=== PATIENT | male | born 1965 | race Asian ===

== ENCOUNTER 2016-12-05 17:46 | Emergency (ER) | payer MEDICAID ==
[2016-12-05] MEDS ORDERED: SULFAMETH/TRIMETH DS 800/160 MG TABLET PO STA (18:27)
[2016-12-05] MEDS ORDERED: LIDOCAINE-EPINEPH-TETRACAINE 3 ML SYRINGE TOP STA (18:27)
[2016-12-05] MEDS ORDERED: HYDROcod/ACETAM 5/325 MG TABLET PO STA (18:27)
[2016-12-05] MEDS ORDERED: CEPHALEXIN 250 MG CAPSULE PO STA (18:27)
--- NOTE | 2016-12-05 18:29 | ED Physician Documentation ---
History of Present Illness - Stated complaint Stated Complaint: R KNEE WOUND/MRSA CHECK - Chief complaint Chief Complaint: Ext Problem - History obtained from History obtained from: Patient, Family - History of Present Illness Timing: How many weeks ago (1) Pain level max: 7 Pain level now: 7 Improved by: Rest Worsened by: Palpation - Additonal information Additional information: Patient presents to the emergency department with redness and swelling to the lateral aspect of the right knee. 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 He is able to ambulate on the leg. He has had this in the past and improved with antibiotics. Does not have any artificial joints. Is able to flex and extend the knee. Review of Systems Constitutional: denies: Fever, Chills Nose: denies: Rhinorrhea / runny nose, Congestion Respiratory: denies: Cough GI: denies: Vomiting Skin: denies: Rash Musculoskeletal: denies: Neck pain, Back pain Neurologic: denies: Headache PD PAST MEDICAL HISTORY - Past Medical History Past Medical History: No - Past Surgical History Past Surgical History: No - Present Medications Home Medications: Ambulatory Orders Medication Instructions Recorded Confirmed Cephalexin [Keflex] 500 mg PO Q6H #28 capsule 12/05/16 Hydrocodone/Acetaminophen 1 - 2 each PO Q6H PRN #14 tablet 12/05/16 [Hydrocodon-Acetaminophen 5-325] Sulfamethoxazole/Trimethoprim 1 each PO BID 7 Days 12/05/16 [Bactrim Ds Tablet] - Allergies Allergies/Adverse Reactions: Allergies Allergy/AdvReac Type Severity Reaction Status Date / Time No Known Drug Allergies Allergy Verified 12/05/16 18:01 - Social History Does the pt smoke?: Yes Smoking Status: Current every day smoker PD ED PE NORMAL - Vitals Vital signs reviewed: Yes - General General: Alert and oriented X 3, No acute distress - Derm Derm: Warm and dry - Extremities Extremities: Other (Right knee - Cellulitis present over the lateral anterior aspect of the knee. There is no joint effusion. There is a very small abscess on the anterior portion of the cellulitis. There is full range of motion of the knee without pain. Neurovascularly intact. The cellulitis is approximately 3 x 6 cm) - Neuro Neuro: Alert and oriented X 3 - Psych Psych: Normal mood, Normal affect Results - Vitals Vitals: Oxygen O2 Source Room air - Labs Labs: Microbiology 12/05/16 19:20 Wound Culture - Preliminary Abscess Procedures - Abscess I&D (location) R knee Preparation: Confirmed with ultrasound, LET Incision: Needle aspiration, Purulent drainage (0.1ml), Culture obtained Other: Pt tolerated well, Dressing applied, Antibiotic prescribed PD MEDICAL DECISION MAKING - ED course Complexity details: re-evaluated patient, considered differential, d/w patient, d/w family ED course: Patient with a left knee cellulitis. This is not a septic joint. The small abscess was unroofed and drained. Will place on antibiotics and pain medications for home. Patient tolerated well. Patient is afebrile. No sepsis. Patient and family counseled regarding signs and symptoms for which I believe and urgent re-evaluation would be necessary. Patient with good understanding of and agreement to plan and is comfortable going home at this time This document was made in part using voice recognition software. While efforts are made to proofread this document, sound alike and grammatical errors may occur. Departure - Departure Disposition: 01 Home, Self Care Clinical Impression: Cellulitis Qualifiers: Site of cellulitis: extremity Site of cellulitis of extremity: lower extremity Laterality: left Qualified Code(s): L03.116 - Cellulitis of left lower limb Condition: Good Instructions: ED Infec Skin Cellulitis Follow-Up: Ludmila Kinney ARNP [Primary Care Provider] - Within 3 Days (for wound check) Prescriptions: Sulfamethoxazole/Trimethoprim [Bactrim Ds Tablet] 1 each PO BID 7 Days Hydrocodone/Acetaminophen [Hydrocodon-Acetaminophen 5-325] 1 - 2 each PO Q6H PRN #14 tablet PRN Reason: pain Cephalexin [Keflex] 500 mg PO Q6H #28 capsule Comments: Return if you worsen. Take all antibiotics until gone. Do not drink alcohol or drive while on narcotic pain medicine. Note that many narcotic pain relievers also contain tylenol/acetaminophen. Please ensure that your total dose of acetaminophen from all sources does not exceed 3 grams (3000mg) per day. You may constipated on this medication, take a stool softener such as "Colace" twice a day while you are on it. Also recommend a onvl-but-luewubr laxative such as senna or MiraLAX any day that you do not have a bowel movement. If you received narcotic pain medication in the emergency department, do not drive or operate machinery for the next 24 hours. Your blood pressure was elevated today on check in to the emergency department. This does not mean that you have hypertension, it is a common phenomenon to check into the emergency department and have elevated blood pressure. I recommend that you see your primary care physician within the week to have it rechecked when you're feeling better. Discharge Date/Time: 12/05/16 19:47
[2016-12-05] MEDS ORDERED: LIDOCAINE-EPINEPH-TETRACAINE 3 ML SYRINGE TOP ONE (18:31)
[2016-12-05] MEDS ORDERED: CEPHALEXIN 250 MG CAPSULE PO ONE (18:31)
[2016-12-05] MEDS ORDERED: HYDROcod/ACETAM 5/325 MG TABLET ONE (18:31)
[2016-12-05] MEDS ORDERED: SULFAMETH/TRIMETH DS 800/160 MG TABLET PO ONE (18:31)
[2016-12-05] MEDS ORDERED: oxyCODONE 5 MG TABLET PO STA (19:35)
[2016-12-05] MEDS ORDERED: oxyCODONE 5 MG TABLET ONE (19:37)
[2016-12-05 19:48] VITALS: BP 132/64
== END 2016-12-05 19:47 | disposition home or self-care (01) ==
LOC: ED 17:46
DX: L02.415 Cutaneous abscess of right lower limb (principal); L03.115 Cellulitis of right lower limb; R03.0 Elevated blood-pressure reading, without diagnosis of hypertension; F17.200 Nicotine dependence, unspecified, uncomplicated
CPT/HCPCS: 10160; 87070; 87077; 87181; 87205; 99283; A9270

== ENCOUNTER 2020-04-28 13:42 | Emergency (ER) | payer MEDICAID ==
[2020-04-28 13:53] VITALS: BP 127/86
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
[2020-04-28] MEDS ORDERED: DEXAMETHASONE 10 MG/ML VIAL PO STA (14:24)
[2020-04-28] MEDS ORDERED: CHERRY SYRUP 10 ML UDC PO ONE (14:24)
[2020-04-28] MEDS ORDERED: CETIRIZINE 10 MG TABLET PO STA (14:24)
[2020-04-28] MEDS ORDERED: diphenhydrAMINE 25 MG CAPSULE PO STA (14:24)
== END 2020-04-28 14:50 | disposition home or self-care (01) ==
LOC: ED 13:42
DX: T63.441A Toxic effect of venom of bees, accidental (unintentional), initial encounter (principal); R22.0 Localized swelling, mass and lump, head; X58.XXXA Exposure to other specified factors, initial encounter; F17.200 Nicotine dependence, unspecified, uncomplicated
CPT/HCPCS: 99282; 99284; A9270

== ENCOUNTER 2020-07-13 11:43 | Emergency (ER) | payer MEDICAID ==
[2020-07-13] MEDS ORDERED: TETANUS/DIPHTHERIA/PERTUSSIS 0.5 ML SYRINGE IM ONE (12:04)
--- NOTE | 2020-07-13 12:13 | ED Physician Documentation ---
PD HPI LOWER EXT INJURY - Stated complaint Stated Complaint: L FOOT INJ - Chief complaint Chief Complaint: Trauma Ext - History obtained from History obtained from: Patient (55-year-old gentleman with unknown tetanus status stepped on a nail through shoes over 2 weeks ago. He has had pain and swelling since and now has redness and a pustule.) Review of Systems Ten Systems: 10 systems reviewed and negative Constitutional: denies: Fever, Chills Throat: reports: Reviewed and negative Cardiac: reports: Reviewed and negative Respiratory: reports: Reviewed and negative PD PAST MEDICAL HISTORY - Past Medical History Cardiovascular: None Respiratory: None Neuro: None Endocrine/Autoimmune: None GI: None : None HEENT: Chronic hearing loss Psych: None Musculoskeletal: None Derm: None - Past Surgical History Past Surgical History: Yes General: Hiatal hernia repair Ortho: Other - Present Medications Home Medications: Ambulatory Orders Medication Instructions Recorded Confirmed Ciprofloxacin HCl [Cipro] 500 mg PO BID #20 tablet 07/13/20 - Allergies Allergies/Adverse Reactions: Allergies Allergy/AdvReac Type Severity Reaction Status Date / Time No Known Drug Allergies Allergy Verified 07/13/20 11:50 - Social History Does the pt smoke?: Yes Smoking Status: Current every day smoker Does the pt drink ETOH?: No Does the pt have substance abuse?: Yes Substance Use and Type: Marijuana - Immunizations Immunizations are current?: No Immunizations: TDAP >10years/unknown - POLST Patient has POLST: No PD ED PE NORMAL - Vitals Vital signs reviewed: Yes - General General: Alert and oriented X 3, No acute distress - HEENT HEENT: PERRL, EOMI - Neck Neck: No JVD, No bruit - Cardiac Cardiac: RRR, No murmur - Respiratory Respiratory: No respiratory distress, Clear bilaterally - Abdomen Abdomen: Normal bowel sounds, Soft, Non tender - Back Back: No CVA TTP, No spinal TTP - Derm Derm: Normal color, Warm and dry - Extremities Extremities: Other (The site of entry of the nail is well-healed, its on the bottom of the heel. There is cellulitis and a pustule more on the lateral side of the calcaneus.) - Neuro Neuro: Alert and oriented X 3, Normal speech - Psych Psych: Normal mood, Normal affect PD ED PE EXPANDED - Extremities Feet visual: 1 - laceration (healed puncture) 2 - abscess (cellulitis with small central pustule) Results - Vitals Vitals: Vital Signs - 24 hr 07/13/20 07/13/20 11:51 12:07 Temperature 36.2 C L 36.8 C Heart Rate 81 79 Respiratory 18 16 Rate Blood Pressure 127/81 H 125/79 O2 Saturation 98 100 Oxygen O2 Source Room air - Labs Labs: Laboratory Tests 07/13/20 07/13/20 07/13/20 12:10 12:10 12:10 WBC 7.3 RBC 4.21 L Hgb 13.3 L Hct 38.7 L MCV 91.9 MCH 31.6 H MCHC 34.4 RDW 13.0 Plt Count 418 MPV 9.7 Neut # (Auto) 4.5 Lymph # (Auto) 1.8 [place] # (Auto) 0.7 Eos # (Auto) 0.3 Baso # (Auto) 0.1 Absolute Nucleated RBC 0.00 Nucleated RBC % 0.0 ESR 28 H Sodium 138 Potassium 4.1 Chloride 103 Carbon Dioxide 25 Anion Gap 10.0 BUN 27 H Creatinine 0.9 Estimated GFR (MDRD) 88 L Glucose 118 H Calcium 9.3 C-Reactive Protein < 1.0 - Rads (name of study) Left calcaneus x-ray Radiology: EMP read contemporaneously (Unremarkable, no sign of osteomyelitis.) Procedures - Abscess I&D (location) L foot lateral Preparation: Betadine, Lidocaine 1% Incision: Incised with scalpel, Purulent drainage (minimal), Culture obtained. No: Packed (too small) Other: Pt tolerated well, Dressing applied, Antibiotic prescribed PD MEDICAL DECISION MAKING - ED course ED course: 55-year-old gentleman presents subsequent to a puncture wound to the left calc aneus with an abscess and cellulitis on the side of the foot. Very modestly elevated ESR but normal white count and low normal CRP. Case was discussed by phone with on-call orthopedics, Dr. Lucas who feels okay to I&D the abscess and placed on antibiotics pending cultures. Departure - Departure Disposition: 01 Home, Self Care Clinical Impression: Foot abscess, left Condition: Good Record reviewed to determine appropriate education?: Yes Instructions: ED Abscess IandD Prescriptions: Ciprofloxacin HCl [Cipro] 500 mg PO BID #20 tablet Comments: We are performing a wound culture, the results should be done in 48-72 hours. If antibiotic change is necessary we will call you. Return if worse in the meantime, especially if you develop increased pain, fevers, cannot keep down the medication. Otherwise follow-up with your physician in approximately 2-3 days.
[2020-07-13 12:24] LABS: BASOPHILS # (AUTO) 0.1 10^3/uL (0.0-0.1); BASOPHILS % (AUTO) 1.4 %; EOSINOPHILS # (AUTO) 0.3 10^3/uL (0.0-0.7); EOSINOPHILS % (AUTO) 3.4 %; HGB - HEMOGLOBIN 13.3 g/dL (14.0-18.0); LYMPHOCYTES # (AUTO) 1.8 10^3/uL (1.5-3.5); LYMPHOCYTES % (AUTO) 24.9 %; MEAN CORPUSCULAR HEMOGLOBIN 31.6 pg (27.0-31.0); MEAN CORPUSCULAR HGB CONC 34.4 g/dL (32.0-36.0); MEAN CORPUSCULAR VOLUME 91.9 fL (80.0-94.0); MEAN PLATELET VOLUME 9.7 fL (7.4-11.4); MONOCYTES # (AUTO) 0.7 10^3/uL (0.0-1.0); MONOCYTES % (AUTO) 8.9 %; NEUTROPHILS # (AUTO) 4.5 10^3/uL (1.5-6.6); NEUTROPHILS % (AUTO) 61.1 %; PLT - PLATELET COUNT 418 10^3/uL (130-450); RED BLOOD COUNT 4.21 10^6/uL (4.70-6.10); WHITE BLOOD COUNT 7.3 x10^3/uL (4.8-10.8)
[2020-07-13 12:40] LABS: BUN - BLOOD UREA NITROGEN 27 mg/dL (6-20); CALCIUM 9.3 mg/dL (8.5-10.3); CARBON DIOXIDE - CO2 25 mmol/L (21-32); CHLORIDE 103 mmol/L (101-111); CREATININE 0.9 mg/dL (0.6-1.2); GLUCOSE 118 mg/dL (70-100); SODIUM 138 mmol/L (135-145)
--- NOTE | 2020-07-13 12:41 | XRAY Report ---
PROCEDURE: Calcaneus LT INDICATIONS: foot infection TECHNIQUE: Two views of the calcaneus were acquired. COMPARISON: None FINDINGS: Bones: No fractures or dislocations. No suspicious bony lesions. Soft tissues: No suspicious calcifications. Achilles tendon appears normal. IMPRESSION: No calcaneal fracture or dislocation. No radiographic evidence of osteomyelitis. Reviewed by: Edward Flores MD on 07/13/2020 11:39 AM TONNY Approved by: Edward Flores MD on 07/13/2020 11:39 AM TONNY Station ID: [id number]
[2020-07-13 12:50] LABS: CRP - C-REACTIVE PROTEIN < 1.0 mg/dL (0-1.0)
[2020-07-13] MEDS ORDERED: BUFFERED LIDOCAINE 10 ML SYRINGE SUBQ STA (13:03)
[2020-07-13 13:41] VITALS: BP 177/82
== END 2020-07-13 13:47 | disposition home or self-care (01) ==
LOC: ED 11:43
DX: L02.612 Cutaneous abscess of left foot (principal); L03.116 Cellulitis of left lower limb; R70.0 Elevated erythrocyte sedimentation rate; Z23 Encounter for immunization; F17.200 Nicotine dependence, unspecified, uncomplicated
CPT/HCPCS: 10060; 36415; 80048; 85025; 85651; 86140; 87070; 87077; 87181; 87205; 90471

== ENCOUNTER 2020-09-11 15:36 | Emergency (ER) | payer MEDICAID ==
[2020-09-11 15:40] VITALS: BP 124/80
--- NOTE | 2020-09-11 15:44 | ED Physician Documentation ---
PD HPI SKIN - Stated complaint Stated Complaint: RT LEG WOUND - Chief complaint Chief Complaint: Wound - History obtained from History obtained from: Patient - History of Present Illness Timing - onset: How many days ago (4) Timing - duration: Days (4) Timing - details: Gradual onset, Still present Location: RLE (anteromedial right thigh, started with small pimple like lesion, thought he had gotten thorn poke working in yard. but then noted 2 small holes appearance so thought spider bite instead. The area has had increased redness and swelling. Has started draining the past day.) Quality / character: Painful, Discolored (red at site and surrounding as well.), Raised, Swelling, Draining (the past day) Associated symptoms: No: Fever, N/V/D Contributing factors: Other (onset after doing yard work and cleaning out shed. Was working with [employer] so some thorn pokes.). No: Recent illness Recently seen: Not recently seen Review of Systems Constitutional: denies: Fever, Chills Nose: denies: Rhinorrhea / runny nose, Congestion Throat: denies: Sore throat Respiratory: denies: Cough GI: denies: Nausea, Vomiting, Diarrhea PD PAST MEDICAL HISTORY - Past Medical History Cardiovascular: None Respiratory: None Neuro: None Endocrine/Autoimmune: None GI: None : None HEENT: Chronic hearing loss Psych: None Musculoskeletal: None Derm: None - Past Surgical History Past Surgical History: Yes General: Hiatal hernia repair Ortho: Other - Present Medications Home Medications: Ambulatory Orders Medication Instructions Recorded Confirmed Chlorhexidine Gluconate [Hibiclens] 15 ml TP DAILY #236 ml 09/11/20 HYDROcod/ACETAM 5/325 [[place] 5/325] 1 ea PO Q6H PRN #15 tablet 09/11/20 Mupirocin Calcium [Mupirocin] 1 applic TP TID #15 cream..g. 09/11/20 Sulfamethox/Trimeth 800/160 1 each PO BID #14 tablet 09/11/20 [Bactrim Ds 800/160] - Allergies Allergies/Adverse Reactions: Allergies Allergy/AdvReac Type Severity Reaction Status Date / Time No Known Drug Allergies Allergy Verified 09/11/20 15:40 - Living Situation Living Situation: reports: Alone Living Arrangement: reports: At home (in a small trailer without running water.) - Social History Does the pt smoke?: Yes Smoking Status: Current every day smoker Does the pt drink ETOH?: No Does the pt have substance abuse?: Yes - Immunizations Immunizations are current?: No Immunizations: TDAP >10years/unknown - POLST Patient has POLST: No PD ED PE NORMAL - Vitals Vital signs reviewed: Yes - General General: Alert and oriented X 3, No acute distress, Well developed/nourished - Derm Derm: Normal color, Warm and dry - Extremities Extremities: Other (right lower anteromedial thigh with very tender, weeping, nonfluctuant area of skin breakdown, and surround skin redness of intact skin. No fluctuance. Mild drainage after palpating the area. ) Results - Vitals Vitals: Vital Signs - 24 hr 09/11/20 15:38 Temperature 35.7 C L Heart Rate 83 Respiratory 18 Rate Blood Pressure 124/80 O2 Saturation 99 Oxygen O2 Source Room air - Labs Labs: Microbiology 09/11/20 16:04 Wound Culture - Preliminary Thigh - Right PD MEDICAL DECISION MAKING - ED course Complexity details: considered differential (appears abscess that has started draining but still with infection and surrounding cellulitis.), d/w patient Departure - Departure Disposition: 01 Home, Self Care Clinical Impression: Abscess of right thigh Condition: Stable Record reviewed to determine appropriate education?: Yes Instructions: ED Staph Infec Abx Tx Only Follow-Up: [facility] [Provider Group] Prescriptions: Sulfamethox/Trimeth 800/160 [Bactrim Ds 800/160] 1 each PO BID #14 tablet Chlorhexidine Gluconate [Hibiclens] 15 ml TP DAILY #236 ml Mupirocin Calcium [Mupirocin] 1 applic TP TID #15 cream..g. HYDROcod/ACETAM 5/325 [[place] 5/325] 1 ea PO Q6H PRN #15 tablet PRN Reason: Pain Comments: Clean the area with soap and water as you have been doing and then apply mupirocin Topical antibiotic. Take Bactrim oral antibiotic twice daily for a week for the infection. Use ibuprofen or naproxen if needed for pains. To that add hydrocodone if needed for worse pain. Use chlorhexidine body wash with your showers head to toe to try to reduce spread of infection to other areas. Recheck if not improved well over the next several days and resolved within the 5 or 6 days. Discharge Date/Time: 09/11/20 16:50
[2020-09-11] MEDS ORDERED: MUPIROCIN 2% OINT 1 GM TOP STA (16:13)
[2020-09-11] MEDS ORDERED: SULFAMETH/TRIMETH DS 800/160 MG TABLET PO STA (16:13)
[2020-09-11] MEDS ORDERED: HYDROcod/ACETAM 5/325 MG TABLET PO STA (16:13)
[2020-09-11] MEDS ORDERED: IBUPROFEN 600 MG TABLET PO STA (16:13)
== END 2020-09-11 16:50 | disposition home or self-care (01) ==
LOC: ED 15:36
DX: L02.415 Cutaneous abscess of right lower limb (principal); F17.200 Nicotine dependence, unspecified, uncomplicated
CPT/HCPCS: 87070; 87181; 87205; 99283; 99284; A9270

== ENCOUNTER 2021-01-24 19:46 | Emergency (ER) | payer MEDICAID ==
[2021-01-24] MEDS ORDERED: IBUPROFEN 800 MG TABLET PO STA (20:32)
[2021-01-24] MEDS ORDERED: SULFAMETH/TRIMETH DS 800/160 MG TABLET PO STA (20:34)
--- NOTE | 2021-01-24 20:34 | ED Physician Documentation ---
PD HPI SKIN - Stated complaint Stated Complaint: SINUS PX - Chief complaint Chief Complaint: Wound - History obtained from History obtained from: Patient - Additional information Additional information: 55-year-old gentleman with history of MRSA in August presents with what he thought was an ingrown hair on the right nares starting about 4 days ago which has progressed since then. Pain is moderate. No fevers. No other current skin issues. Review of Systems Constitutional: reports: Reviewed and negative Eyes: reports: Reviewed and negative Nose: reports: Reviewed and negative Throat: reports: Reviewed and negative Cardiac: reports: Reviewed and negative PD PAST MEDICAL HISTORY - Past Medical History Cardiovascular: None Respiratory: None Neuro: None Endocrine/Autoimmune: None GI: None : None HEENT: Chronic hearing loss Psych: None Musculoskeletal: None Derm: None - Past Surgical History Past Surgical History: Yes General: Hiatal hernia repair Ortho: Other - Present Medications Home Medications: Ambulatory Orders Medication Instructions Recorded Confirmed Sulfamethox/Trimeth 800/160 1 each PO BID #14 tablet 01/24/21 [Bactrim Ds 800/160] - Allergies Allergies/Adverse Reactions: Allergies Allergy/AdvReac Type Severity Reaction Status Date / Time No Known Drug Allergies Allergy Verified 01/24/21 20:22 - Social History Does the pt smoke?: Yes Smoking Status: Current every day smoker Does the pt drink ETOH?: No Does the pt have substance abuse?: Yes - Immunizations Immunizations are current?: No Immunizations: TDAP >10years/unknown - POLST Patient has POLST: No PD ED PE NORMAL - Vitals Vital signs reviewed: Yes - General General: Alert and oriented X 3, No acute distress - HEENT HEENT: Other (He has an expressible nasal abscess right between the nares, a little more on the right than the left. It is actively draining on the right side and a culture is taken.) - Neck Neck: Supple, no meningeal sign, No bony TTP - Neuro Neuro: Alert and oriented X 3, Normal speech - Psych Psych: Normal mood, Normal affect Results - Vitals Vitals: Vital Signs - 24 hr 01/24/21 01/24/21 20:15 20:53 Temperature 36.0 C L 36.5 C Heart Rate 70 75 Respiratory 16 16 Rate Blood Pressure 127/84 H 128/74 O2 Saturation 98 98 Oxygen O2 Source Room air PD MEDICAL DECISION MAKING - ED course ED course: 55-year-old gentleman has a nasal abscess, culture is pending and he was started on Bactrim pending cultures given history of MRSA sensitive to Bactrim. Departure - Departure Disposition: 01 Home, Self Care Clinical Impression: Abscess Condition: Good Record reviewed to determine appropriate education?: Yes Instructions: ED Abscess IandD Prescriptions: Sulfamethox/Trimeth 800/160 [Bactrim Ds 800/160] 1 each PO BID #14 tablet Comments: As discussed, I do not think at this point your nasal abscess needs to be incised, that said, a lot of similar infections progressed to needing an incision and drainage. If it grows despite the antibiotics or you fail to improve over the next couple of days please return, preferably not having ate or drank in the several hours before you return and with a auto parts delivery driver so that we could potentially sedate you if needed for incision and drainage. We are performing a wound culture, the results should be done in 48-72 hours. If antibiotic change is necessary we will call you. Return if worse in the meantime, especially if you develop increased pain, fevers, cannot keep down the medication. Otherwise follow-up with your physician in approximately 2-3 days. Discharge Date/Time: 01/24/21 20:54
[2021-01-24 20:55] VITALS: BP 128/74
== END 2021-01-24 20:54 | disposition home or self-care (01) ==
LOC: ED 19:46
DX: J34.0 Abscess, furuncle and carbuncle of nose (principal); F17.200 Nicotine dependence, unspecified, uncomplicated
CPT/HCPCS: 87070; 87181; 87205; 99283; 99284; A9270

== ENCOUNTER 2021-03-12 13:18 | Emergency (ER) | payer OTHER, MEDICAID ==
[2021-03-12 13:38] VITALS: BP 135/84
--- NOTE | 2021-03-12 14:17 | XRAY Report ---
PROCEDURE: Elbow 3 View LT INDICATIONS: struck elbow TECHNIQUE: 3 views of the elbow were acquired. COMPARISON: None. FINDINGS: Bones: No fractures or dislocations. No suspicious bony lesions. Soft tissues: No elbow joint effusion. No suspicious soft tissue calcifications. IMPRESSION: 1. No fracture or dislocation. Reviewed by: Justin Burns MD on 03/12/2021 2:16 PM PDT Approved by: Justin Burns MD on 03/12/2021 2:16 PM PDT Station ID: [id number]
--- NOTE | 2021-03-12 14:22 | ED Physician Documentation ---
History of Present Illness - Stated complaint Stated Complaint: LT ARM INJ - Chief complaint Chief Complaint: Trauma Ext - History obtained from History obtained from: Patient - History of Present Illness Timing: How many weeks ago (2) Pain level max: 5 Pain level now: 4 - Additonal information Additional information: Patient is a 55-year-old male who struck his left forearm on a piece of concrete about 2 weeks ago while at work. He states worse with movement, better with rest. Difficulty holding heavy objects in the left hand secondary to pain at the site. No numbness or tingling. Patient is right-handed. Taking Tylenol for pain. Review of Systems Constitutional: denies: Fever, Chills GI: denies: Vomiting, Diarrhea Skin: denies: Rash Musculoskeletal: denies: Neck pain, Back pain Neurologic: denies: Headache PD PAST MEDICAL HISTORY - Past Medical History Past Medical History: No Cardiovascular: None Respiratory: None Neuro: None Endocrine/Autoimmune: None GI: None : None HEENT: Chronic hearing loss Psych: None Musculoskeletal: None Derm: None - Past Surgical History Past Surgical History: Yes General: Hiatal hernia repair Ortho: Other - Present Medications Home Medications: Ambulatory Orders Medication Instructions Recorded Confirmed No Known Home Medications 03/12/21 03/12/21 - Allergies Allergies/Adverse Reactions: Allergies Allergy/AdvReac Type Severity Reaction Status Date / Time No Known Drug Allergies Allergy Verified 03/12/21 13:38 - Social History Does the pt smoke?: Yes Smoking Status: Current every day smoker Does the pt drink ETOH?: No Does the pt have substance abuse?: Yes Substance Use and Type: Meth - Immunizations Immunizations are current?: Yes Immunizations: TDAP >10years/unknown - POLST Patient has POLST: No PD ED PE NORMAL - Vitals Vital signs reviewed: Yes - General General: Alert and oriented X 3, No acute distress - HEENT HEENT: Moist mucous membranes - Neck Neck: Supple, no meningeal sign - Cardiac Cardiac: RRR, Strong equal pulses - Respiratory Respiratory: No respiratory distress, Clear bilaterally - Abdomen Abdomen: Soft, Non tender, Non distended - Derm Derm: Warm and dry - Extremities Extremities: Other (Tender to palpation over the dorsal proximal aspect of the left forearm. Full range of motion of all fingers against resistance. Neurovascular intact. Full range of motion of the elbow. No bony tenderness. No deformity.) - Neuro Neuro: Alert and oriented X 3 - Psych Psych: Normal mood, Normal affect Results - Vitals Vitals: Vital Signs - 24 hr 03/12/21 13:34 Temperature 36.4 C L Heart Rate 83 Respiratory 16 Rate Blood Pressure 135/84 H O2 Saturation 98 Oxygen O2 Source Room air - Rads (name of study) Left elbow x-ray Radiology: Prelim report reviewed, EMP read contemporaneously, See rad report (No acute abnormality) PD MEDICAL DECISION MAKING - ED course Complexity details: reviewed results, re-evaluated patient, considered differential, d/w patient ED course: Patient is a 55-year-old male who presents to the emergency department with what appears to be a left elbow tendinitis/contusion. He can utilize bracing at home. Patient counseled regarding signs and symptoms for which I believe and urgent re-evaluation would be necessary. Patient with good understanding of and agreement to plan and is comfortable going home at this time This document was made in part using voice recognition software. While efforts are made to proofread this document, sound alike and grammatical errors may occur. L&I paperwork completed Departure - Departure Disposition: 01 Home, Self Care Clinical Impression: Muscle strain, Tendonitis Condition: Good Instructions: ED Strain Muscle Ext Follow-Up: [facility] [Provider Group] Comments: If you are having pain in 1 week, you should follow-up with orthopedics to ensure there is no more serious injury to your elbow. You can try an elbow strap compression brace as well. Return if you worsen. Discharge Date/Time: 03/12/21 14:46
== END 2021-03-12 14:46 | disposition home or self-care (01) ==
LOC: ED 13:18
DX: S56.912A Strain of unspecified muscles, fascia and tendons at forearm level, left arm, initial encounter (principal); W22.8XXA Striking against or struck by other objects, initial encounter; Y99.0 Civilian activity done for income or pay; F17.200 Nicotine dependence, unspecified, uncomplicated
CPT/HCPCS: 99282; 99283

== ENCOUNTER 2021-08-23 11:28 | Emergency (ER) | payer MEDICAID ==
[2021-08-23 11:58] LABS: BILIRUBIN,URINE NEGATIVE (NEGATIVE); GLUCOSE, URINE (UA) NEGATIVE (NEGATIVE); KETONES,URINE (UA) NEGATIVE (NEGATIVE); LEUKOCYTE ESTERASE, URINE SMALL (NEGATIVE); NITRITE,URINE NEGATIVE (NEGATIVE); OCCULT BLOOD,URINE MODERATE (NEGATIVE); PROTEIN,URINE NEGATIVE (NEGATIVE); UROBILINOGEN,URINE 0.2 (NORMAL) E.U./dL (NORMAL)
[2021-08-23 12:00] LABS: CLARITY,URINE HAZY (CLEAR)
[2021-08-23 12:12] LABS: BACTERIA,URINE Few /HPF (None Seen); RBC,URINE 0-5 /HPF (0-5); SQUAMOUS EPITHELIAL CELL,UR NONE SEEN (<= Few); WBC,URINE >25 /HPF (0-3)
--- NOTE | 2021-08-23 13:39 | ED Physician Documentation ---
PD HPI MALE - Stated complaint Stated Complaint: MALE - Chief complaint Chief Complaint: UTI - History obtained from History obtained from: Patient - History of Present Illness Timing - onset: How many weeks ago (2) Timing - duration: Weeks (2) Timing - details: Gradual onset, Intermittant Associated symptoms: Dysuria, Hematuria Similar symptoms before: Has not had sx before Review of Systems Constitutional: denies: Fever, Chills GI: denies: Abdominal Pain, Nausea, Vomiting : reports: Dysuria, Hematuria Skin: denies: Rash, Lesions Musculoskeletal: reports: Back pain (lower right back the past few days) PD PAST MEDICAL HISTORY - Past Medical History Cardiovascular: None Respiratory: None Neuro: None Endocrine/Autoimmune: None GI: None : None HEENT: Chronic hearing loss Psych: None Musculoskeletal: None Derm: None - Past Surgical History Past Surgical History: Yes General: Hiatal hernia repair Ortho: Other - Present Medications Home Medications: Ambulatory Orders Medication Instructions Recorded Confirmed Sulfamethox/Trimeth 800/160 1 each PO BID #14 tablet 08/23/21 [Bactrim Ds 800/160] - Allergies Allergies/Adverse Reactions: Allergies Allergy/AdvReac Type Severity Reaction Status Date / Time No Known Drug Allergies Allergy Verified 08/23/21 11:37 - Social History Does the pt smoke?: Yes Smoking Status: Current every day smoker Does the pt drink ETOH?: No Does the pt have substance abuse?: Yes - Immunizations Immunizations are current?: Yes Immunizations: TDAP >10years/unknown - POLST Patient has POLST: No PD ED PE NORMAL - Vitals Vital signs reviewed: Yes - General General: Alert and oriented X 3, No acute distress, Well developed/nourished - Abdomen Abdomen: Soft, Other (mild tenderness suprapubic area. No fullness. ) - Back Back: No CVA TTP - Derm Derm: Normal color, Warm and dry, No rash Results - Vitals Vitals: Oxygen O2 Source Room air - Labs Labs: Microbiology 08/23/21 11:53 Urine Culture - Preliminary Urine,Clean Catch Escherichia Coli Laboratory Tests 08/23/21 11:53 Urine Color YELLOW Urine Clarity HAZY Urine pH 6.0 Ur Specific [place] 1.010 Urine Protein NEGATIVE Urine Glucose (UA) NEGATIVE Urine Ketones NEGATIVE Urine Occult Blood MODERATE H Urine Nitrite NEGATIVE Urine Bilirubin NEGATIVE Urine Urobilinogen 0.2 (NORMAL) Ur Leukocyte Esterase SMALL H Urine RBC 0-5 Urine WBC >25 H Ur Squamous Epith Cells NONE SEEN Urine Bacteria Few Ur Microscopic Review INDICATED Urine Culture Comments INDICATED - Rads (name of study) kub CT Radiology: Prelim report reviewed (no stones nor masses.), See rad report PD MEDICAL DECISION MAKING - ED course Complexity details: considered differential, d/w patient Departure - Departure Disposition: 01 Home, Self Care Clinical Impression: UTI (urinary tract infection) Qualifiers: Urinary tract infection type: acute cystitis Hematuria presence: with hematuria Qualified Code(s): N30.01 - Acute cystitis with hematuria Condition: Stable Record reviewed to determine appropriate education?: Yes Instructions: ED UTI Cystitis Male Prescriptions: Sulfamethox/Trimeth 800/160 [Bactrim Ds 800/160] 1 each PO BID #14 tablet Comments: Does not show any stones or obvious tumors or masses. It did demonstrate thickening of the bladder wall consistent with infection. Your urine and symptoms are consistent with infection. Bactrim antibiotic twice daily for a week as directed. Stay well-hydrated. Tylenol or ibuprofen if needed for pains. Recheck if not improving well over the next several days. Discharge Date/Time: 08/23/21 15:56
[2021-08-23] MEDS ORDERED: IBUPROFEN 600 MG TABLET PO STA (13:52)
[2021-08-23] MEDS ORDERED: ACETAMINOPHEN 325 MG TABLET PO STA (13:52)
[2021-08-23 14:29] VITALS: BP 106/75
[2021-08-23] MEDS ORDERED: SULFAMETH/TRIMETH DS 800/160 MG TABLET PO STA (14:53)
--- NOTE | 2021-08-23 15:14 | CT Report ---
PROCEDURE: Abdomen/Pelvis WO INDICATIONS: right abd/flank pain TECHNIQUE: Noncontrast 5 mm thick sections acquired from the diaphragms to the symphysis. 5 mm coronal and sagi ttal reformats were then performed. For radiation dose reduction, the following was used: automated exposure control, adjustment of mA and/or kV according to patient size. COMPARISON: None. FINDINGS: Image quality: Excellent. ABDOMEN: Lung bases: Lung bases are clear. Heart size is normal. Solid organs: Liver is mildly enlarged.. Normal in size. Gallbladder Pancreas is normal in contou rs. No adrenal nodules. Kidneys are normal in size, without hydronephrosis. Punctate nonobstructing inferior right renal pole calculus is present. Peritoneum and bowel: Unenhanced bowel loops demonstrate normal wall thickness and caliber. No free fluid or air. Moderate colonic stool is present particularly within the right colon. Nodes and vessels: No retroperitoneal or mesenteric adenopathy by size criteria. Aorta and inferior vena cava are normal in caliber. Miscellaneous: No ventral hernias. PELVIS: Genitourinary: Bladder wall is diffusely thickened and incompletely distended. Miscellaneous: Small fat-containing inguinal hernias are present bilaterally.. Bones: No suspicious bony lesions. No vertebral body compression fractures. IMPRESSION: 1. No abdominal/pelvic inflammatory change. 2. Nonobstructing punctate right renal pole calculus. 3. Moderate colonic stool without obstruction. 4. Diffusely thickened bladder wall, which could be secondary to incomplete distention. However, cyst itis can have a similar appearance and recommend correlation with patient's symptoms and laboratory saul jolly. Reviewed by: Antonieta Laws MD on 08/23/2021 3:12 PM PST Approved by: Antonieta Laws MD on 08/23/2021 3:12 PM PST Station ID: [id number]
== END 2021-08-23 15:56 | disposition home or self-care (01) ==
LOC: ED 11:28
DX: N30.01 Acute cystitis with hematuria (principal); F17.200 Nicotine dependence, unspecified, uncomplicated
CPT/HCPCS: 51798; 74176; 81001; 87086; 87181; 99283; 99284; A9270; 81003

== ENCOUNTER 2023-05-27 18:50 | Emergency (ER) | payer MEDICAID, OTHER ==
[2023-05-27 18:58] VITALS: BP 139/62; O2SAT 96
[2023-05-27] MEDS ORDERED: cephALEXin 250 MG CAPSULE PO STA (20:39)
--- NOTE | 2023-05-27 20:40 | ED Physician Documentation ---
History of Present Illness - Stated complaint Stated Complaint: RT THUMB LAC - Chief complaint Chief Complaint: Laceration - History obtained from History obtained from: Patient - History of Present Illness Timing: Last night Pain level max: 5 Pain level now: 3 - Additonal information Additional information: 57-year-old male presents to the emergency department stating that last night he was using a homemade sword when he accidentally cut his right thumb. He states increasing pain today so came in for evaluation. Patient states that his tetanus shot is up-to-date. Worse with movement, better with rest. Review of Systems Constitutional: denies: Fever, Chills PD PAST MEDICAL HISTORY - Past Medical History Cardiovascular: None Respiratory: None Neuro: None Endocrine/Autoimmune: None GI: None : None HEENT: Chronic hearing loss Psych: None Musculoskeletal: None Derm: None - Past Surgical History Past Surgical History: Yes General: Hiatal hernia repair Ortho: Other - Present Medications Home Medications: Ambulatory Orders Medication Instructions Recorded Confirmed cephALEXin [Keflex] 500 mg PO Q6H #28 cap 05/27/23 - Allergies Allergies/Adverse Reactions: Allergies Allergy/AdvReac Type Severity Reaction Status Date / Time No Known Drug Allergies Allergy Verified 08/23/21 11:37 - Social History Does the pt smoke?: Yes Smoking Status: Current every day smoker Does the pt drink ETOH?: No Does the pt have substance abuse?: Yes - Immunizations Immunizations are current?: Yes Immunizations: TDAP >10years/unknown - POLST Patient has POLST: No PD ED PE NORMAL - Vitals Vital signs reviewed: Yes - General General: Alert and oriented X 3, No acute distress - HEENT HEENT: Moist mucous membranes - Neck Neck: Supple, no meningeal sign - Cardiac Cardiac: RRR - Derm Derm: Warm and dry - Extremities Extremities: Other (2 cm laceration to the dorsal aspect of the right thumb, over the MCP joint. Neurovascular intact. No tendon injury. No active bleeding.) - Neuro Neuro: Alert and oriented X 3 Results - Vitals Vitals: Vital Signs - 24 hr 05/27/23 18:55 Temperature 37.1 C Heart Rate 100 Respiratory 15 Rate Blood Pressure 139/62 H O2 Saturation 96 Oxygen O2 Source Room air Procedures - Laceration (location) Right thumb MCP Length in cm: 2 Wound type: Linear, Into subcut fat, Clean Neurovascular status: Sensory intact, Motor intact, Vascular intact Tendon involvement: Tendon intact Anesthesia: Lidocaine 1% Wound preparation: Irrigated copiously NS, Wound explored, To the base Skin layer closure: Nylon, Interrupted, Size #-0 - enter number (4) Other: Patient tolerated well, No complications, Neurovascular intact, Dressing applied, Tetanus UTD PD Medical Decision Making - ED course Complexity details: considered differential, d/w patient ED course: Laceration repaired. Tolerated well. We will place on oral antibiotics as well as this appears to be a dirty wound. Tetanus shot is up-to-date. Warnings of infection and instructions on wound care given at bedside. Also counseled on how to minimize scarring. Patient counseled regarding signs and symptoms for which I believe and urgent re-evaluation would be necessary. Patient with good understanding of and agreement to plan and is comfortable going home at this time This document was made in part using voice recognition software. While efforts are made to proofread this document, sound alike and grammatical errors may occur. Departure - Departure Disposition: 01 Home, Self Care Clinical Impression: Thumb laceration Qualifiers: Encounter type: initial encounter Damage to nail status: unspecified Foreign body presence: without foreign body Laterality: right Qualified Code(s): S61.011 A - Laceration without foreign body of right thumb without damage to nail, initial encounter Condition: Good Instructions: ED Laceration Hand Follow-Up: [facility] [place] [Provider Group] [facility] [place] [Provider Group] Prescriptions: cephALEXin [Keflex] 500 mg PO Q6H #28 cap Comments: Your prescription was sent to [facility] in [place]. Please take all antibiotics until gone. Keep the wound clean. Return if you notice redness, swelling or drainage from the wound. You can use Motrin and Tylenol as needed for pain. The sutures should be removed in approximately 10 to 14 days. This can be done with your primary care provider or the walk-in clinic in [place]. Forms: PCP List Discharge Date/Time: 05/27/23 20:55
== END 2023-05-27 20:55 | disposition home or self-care (01) ==
LOC: ED 18:50
DX: S61.011A Laceration without foreign body of right thumb without damage to nail, initial encounter (principal); W26.1XXA Contact with sword or dagger, initial encounter; F17.200 Nicotine dependence, unspecified, uncomplicated
CPT/HCPCS: 12001; 99282; A9270

== ENCOUNTER 2023-06-13 07:32 | Emergency (ER) | payer MEDICAID ==
--- NOTE | 2023-06-13 08:15 | ED Physician Documentation ---
PD HPI WOUND RECHECK - Stated complaint Stated Complaint: RT THUMB PX - Chief complaint Chief Complaint: Wound - Histroy obtained from History obtained from: Patient - History of Present Illness Location: Right Upper Extremity (dorsum of thumb at MCP joint.) Timing - onset: How many days ago Associated symptoms: Swelling, Drainage, Pain. No: Fever Similar symptoms before: Has not had sx before Recently seen: Emergency Dept (17 days ago with suturing of thumb wound. He took sutures out himself at 10 days. Wound opened soon after that. But drainage and pain just the past 2 days.) Review of Systems Constitutional: denies: Fever, Chills Skin: reports: Laceration (s) (right thumb MCP dorsally with dehiscence and he says he sees small black worms in it after cleaning with bleach and water. Has wound underneath right 2 toes as well.) Neurologic: denies: Focal weakness, Numbness PD PAST MEDICAL HISTORY - Past Medical History Past Medical History: Yes Cardiovascular: None Respiratory: None Neuro: None Endocrine/Autoimmune: None GI: None : None HEENT: Chronic hearing loss Psych: None Musculoskeletal: None Derm: None - Past Surgical History Past Surgical History: Yes General: Hiatal hernia repair Ortho: Other - Present Medications Home Medications: Ambulatory Orders Medication Instructions Recorded Confirmed cephALEXin [Keflex] 500 mg PO Q6H #28 cap 05/27/23 06/13/23 Doxycycline Hyclate 100 mg PO BID 7 Days #14 cap 06/13/23 Meloxicam [Mobic] 7.5 mg PO BID 10 Days #20 tablet 06/13/23 Mupirocin 2% Oint [Bactroban 2% 1 applic TOP TID #15 gm 06/13/23 Oint] Nystatin 1 applic TP BID #15 gm 06/13/23 - Allergies Allergies/Adverse Reactions: Allergies Allergy/AdvReac Type Severity Reaction Status Date / Time No Known Drug Allergies Allergy Verified 06/13/23 07:37 - Social History Does the pt smoke?: Yes Smoking Status: Current every day smoker Does the pt drink ETOH?: Yes Does the pt have substance abuse?: Yes Substance Use and Type: Marijuana - Immunizations Immunizations are current?: Yes Immunizations: TDAP >10years/unknown - POLST Patient has POLST: No PD ED PE NORMAL - Vitals Vital signs reviewed: Yes - General General: Alert and oriented X 3, Well developed/nourished - Cardiac Cardiac: RRR, No murmur - Respiratory Respiratory: Clear bilaterally Results - Vitals Vitals: Vital Signs - 24 hr 06/13/23 06/13/23 06/13/23 07:38 10:24 12:00 Temperature 36.3 C L 36 C L 36.5 C Heart Rate 86 75 72 Respiratory 18 16 16 Rate Blood Pressure 142/104 H 129/96 H 112/81 H O2 Saturation 100 98 100 Oxygen O2 Source Room air - Labs Labs: Microbiology 06/13/23 08:43 Wound Culture - Preliminary Finger - Right Thumb - Rads (name of study) thumb xray Relevant Findings:: Prelim report reviewed (arthritic changes at MCP. DOrsal end of first MC with some degenerative changes c/w arthiritis or infectious possible. ), EMP independent interpretation of test PD Medical Decision Making - ED course Complexity details: reviewed results (xray of thumb with arthritic vs infectious process at out bone end of first MC. arthritic in joint otherwise. ), considered differential (wound infection and poor healing. Some clear fluid discahrge. he had taken sutures out of the wound about 10 days after suturing, and wound opened soon after. But developed worse pain and drainage just the past couple days. ), d/w patient Social Determinants of Health: has some paranoia (asked me to get nurse to come and verify that I was a doctor, even after seeing my ID tag). He did not want blood tests and was reluctant for xray. Willing to take antibiotics. he was aware that he was overly anxious. I asked if he would like meds for that and he was agreeable. he believes he sees v letty small worms come out of toe and thumb wound when he cleans them. Having pain when cleans wounds as is using water and bleach. I recommended to just use water. He lives in trailer without running water nor heat. Unable to take shower. I had SOcial Work talk with him aobut any resources/info. The patient did admit to some meth use. He is not dysfunctional enough seeming to be disability for care. ED course: the thumb has wound opening soon safter suture removal at 10 days. Had drainage and swelling now c/w infection though likely hadit some earlier since the wound did not heal closed well. His right little/4th toes have some redness and mild skin breakdown in flexion creases and redness of skin with edge of it c/w tinea. No deeper wound and not FB/worms/maggots/etc seen in the area. Departure - Departure Disposition: 01 Home, Self Care Clinical Impression: Wound infection, Dehiscence of laceration wound of finger, Tinea pedis Condition: Stable Record reviewed to determine appropriate education?: Yes Follow-Up: [facility] [Provider Group] Prescriptions: Mupirocin 2% Oint [Bactroban 2% Oint] 1 applic TOP TID #15 gm Doxycycline Hyclate 100 mg PO BID 7 Days #14 cap Meloxicam [Mobic] 7.5 mg PO BID 10 Days #20 tablet Nystatin 1 applic TP BID #15 gm Comments: For the thumb wound, or just clean with basic water 2-3 times daily. I would avoid the bleach or peroxide. Apply mupirocin antibiotic ointment lightly to the area after cleaning. Bandages to keep it clean. Use the thumb splint to help reduce range of motion and help with the discomfort. We can use an anti-inflammatory to see if that helps with some of the discomfort. I wrote for meloxicam which is similar to an ibuprofen. Add Tylenol every 4-6 hours if needed for pain. Also take doxycycline oral antibiotic. I did do a wound culture from the thumb we will see what the results of that are over the next couple of days and if we need to modify the antibiotic choice. Regarding your toes, I think it is just an athlete's foot with a fungal infection. Use nystatin ointment to the area 2 or 3 times daily lightly and also mupirocin antibiotic ointment to the area in case there is some bacterial component as well. That should heal up over the next several days to week. I sent your prescriptions to [facility] in [place]. Recheck of your wounds in about 3 to 5 days to see how much better they are doing. They can be here or walk-in or primary care. Return if worse. Forms: PCP List Discharge Date/Time: 06/13/23 12:18
[2023-06-13] MEDS ORDERED: MUPIROCIN 2% OINT 1 GM TOP STA (08:48)
[2023-06-13] MEDS ORDERED: NAPROXEN 250 MG TABLET PO STA (08:48)
[2023-06-13] MEDS ORDERED: DOXYCYCLINE 100 MG TABLET PO STA (08:48)
[2023-06-13] MEDS ORDERED: LORazepam 1 MG TABLET PO STA (09:15)
[2023-06-13] MEDS ORDERED: OLANZapine ODT 5 MG TABLET TL STA (09:15)
--- NOTE | 2023-06-13 09:53 | XRAY Report ---
PROCEDURE: Finger(s) RT INDICATIONS: thumb MCP infection 2 weeks TECHNIQUE: AP hand, 2 views of the first finger(s) acquired. COMPARISON: None. FINDINGS: Bones: No fractures or dislocations. No suspicious bony lesions. Joint space narrowing and periost eal osteophyte formation at the first metacarpophalangeal joint. Ill-defined lucency within the dista l aspect of the first metacarpal. Soft tissues: No suspicious soft tissue calcifications or masses. IMPRESSION: 1. First metacarpal phalangeal joint osteoarthritis. 2. Lucencies within the first metacarpal head, which could indicate degenerative and/or infectious se quelae. Reviewed by: Jesusita Hung MD on 06/13/2023 9:52 AM PDT Approved by: Jesusita Hung MD on 06/13/2023 9:52 AM PDT Station ID: [id number]
[2023-06-13 12:06] VITALS: BP 112/81; O2SAT 100
== END 2023-06-13 12:18 | disposition home or self-care (01) ==
LOC: ED 07:32
DX: T81.30XA Disruption of wound, unspecified, initial encounter (principal); S61.011A Laceration without foreign body of right thumb without damage to nail, initial encounter; B35.3 Tinea pedis; F17.200 Nicotine dependence, unspecified, uncomplicated
CPT/HCPCS: 73140; 87070; 87205; 99283; 99284; A9270; J8499; 87181

== ENCOUNTER 2023-12-22 09:46 | Emergency (ER) | payer MEDICAID ==
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
[2023-12-22 10:08] LABS: BASOPHILS # (AUTO) 0.1 10^3/uL (0.0-0.1); BASOPHILS % (AUTO) 1.4 %; EOSINOPHILS # (AUTO) 0.2 10^3/uL (0.0-0.7); EOSINOPHILS % (AUTO) 2.6 %; HGB - HEMOGLOBIN 13.4 g/dL (14.0-18.0); LYMPHOCYTES # (AUTO) 1.5 10^3/uL (1.5-3.5); LYMPHOCYTES % (AUTO) 20.3 %; MEAN CORPUSCULAR HEMOGLOBIN 30.4 pg (27.0-31.0); MEAN CORPUSCULAR HGB CONC 32.7 g/dL (32.0-36.0); MEAN PLATELET VOLUME 9.7 fL (7.4-11.4); MONOCYTES # (AUTO) 0.7 10^3/uL (0.0-1.0); MONOCYTES % (AUTO) 9.7 %; NEUTROPHILS # (AUTO) 4.8 10^3/uL (1.5-6.6); NEUTROPHILS % (AUTO) 65.9 %; PLT - PLATELET COUNT 394 10^3/uL (130-450); RED BLOOD COUNT 4.41 10^6/uL (4.70-6.10); RED CELL DISTRIBUTION WIDTH 13.2 % (12.0-15.0); WHITE BLOOD COUNT 7.3 x10^3/uL (4.8-10.8)
[2023-12-22 10:29] LABS: ACETAMINOPHEN 0.4 ug/mL; ALBUMIN 4.2 g/dL (3.2-5.5); ALBUMIN/GLOBULIN RATIO 1.5 (1.0-2.2); ALKALINE PHOSPHATASE 50 IU/L (42-121); ALT ALANINE AMINOTRANSFERASE 12 IU/L (10-60); AST ASPARTATE AMINOTRANSFERASE 16 IU/L (10-42); BILIRUBIN,TOTAL 0.4 mg/dL (0.2-1.0); BUN - BLOOD UREA NITROGEN 24 mg/dL (6-20); CALCIUM 10.1 mg/dL (8.5-10.3); CARBON DIOXIDE - CO2 28 mmol/L (21-32); CHLORIDE 103 mmol/L (101-111); CK- CREATINE KINASE 151 IU/L (30-223); CREATININE 0.8 mg/dL (0.6-1.3); ETOH - ETHANOL < 10.0 mg/dL; GFR - MDRD 100 (>89); GLUCOSE 127 mg/dL (74-104); LIPASE 29 U/L (11-82); MAGNESIUM 1.7 mg/dL (1.7-2.3); POTASSIUM 4.3 mmol/L (3.5-4.5); SODIUM 136 mmol/L (135-145)
[2023-12-22 10:30] LABS: SALICYLATE < 1.5 mg/dL
[2023-12-22 10:58] LABS: THYROID STIMULATING HORMONE 13.25 uIU/mL (0.34-5.60)
[2023-12-22 11:05] LABS: BILIRUBIN,URINE NEGATIVE (NEGATIVE); GLUCOSE, URINE (UA) NEGATIVE (NEGATIVE); KETONES,URINE (UA) NEGATIVE (NEGATIVE); LEUKOCYTE ESTERASE, URINE NEGATIVE (NEGATIVE); NITRITE,URINE NEGATIVE (NEGATIVE); OCCULT BLOOD,URINE NEGATIVE (NEGATIVE); PROTEIN,URINE NEGATIVE (NEGATIVE); UROBILINOGEN,URINE 0.2 (NORMAL) E.U./dL (NORMAL)
[2023-12-22 11:06] LABS: CLARITY,URINE CLEAR (CLEAR)
[2023-12-22 11:15] LABS: AMPHETAMINE SCREEN,URINE POSITIVE (NEGATIVE); BARBITURATE SCREEN,UR NEGATIVE (NEGATIVE); BENZODIAZEPINES SCREEN, URINE NEGATIVE (NEGATIVE); BUPRENORPHINE SCREEN, URINE NEGATIVE (NEGATIVE); COCAINE SCREEN URINE NEGATIVE (NEGATIVE); METHADONE SCREEN, URINE NEGATIVE (NEGATIVE); METHAMPHETAMINES SCREEN, URINE POSITIVE (NEGATIVE); OPIATE SCREEN, URINE NEGATIVE (NEGATIVE); OXYCODONE SCREEN, URINE NEGATIVE (NEGATIVE); THC CANNABINOID SCREEN, URINE POSITIVE (NEGATIVE); TRICYCLIC ANTIDEPRESSANT,URINE NEGATIVE (NEGATIVE)
[2023-12-22] MEDS: OLANZapine ODT 5 MG TABLET TL ONE (14:17)
[2023-12-22 16:40] VITALS: BP 138/88; O2SAT 100
== END 2023-12-22 16:31 | disposition home or self-care (01) ==
LOC: ED 09:46
DX: F29 Unspecified psychosis not due to a substance or known physiological condition (principal); F15.90 Other stimulant use, unspecified, uncomplicated; F17.200 Nicotine dependence, unspecified, uncomplicated; R94.6 Abnormal results of thyroid function studies
CPT/HCPCS: 36415; 80053; 80143; 80179; 80306; 81003; 82077; 82550; 82607; 82746; 83690; 83735; 84443; 85025; 87635; 93005; 99283; 99284; A9270; 81001; 87086

== ENCOUNTER 2023-12-26 08:24 | Emergency (ER) | payer MEDICAID ==
[2023-12-26 08:52] LABS: BASOPHILS # (AUTO) 0.1 10^3/uL (0.0-0.1); BASOPHILS % (AUTO) 1.1 %; EOSINOPHILS # (AUTO) 0.2 10^3/uL (0.0-0.7); EOSINOPHILS % (AUTO) 1.9 %; HCT - HEMATOCRIT 39.9 % (42.0-52.0); HGB - HEMOGLOBIN 13.3 g/dL (14.0-18.0); LYMPHOCYTES # (AUTO) 1.5 10^3/uL (1.5-3.5); LYMPHOCYTES % (AUTO) 17.7 %; MEAN CORPUSCULAR HEMOGLOBIN 30.1 pg (27.0-31.0); MEAN CORPUSCULAR HGB CONC 33.3 g/dL (32.0-36.0); MEAN CORPUSCULAR VOLUME 90.3 fL (80.0-94.0); MEAN PLATELET VOLUME 9.4 fL (7.4-11.4); MONOCYTES # (AUTO) 0.8 10^3/uL (0.0-1.0); MONOCYTES % (AUTO) 9.3 %; NEUTROPHILS # (AUTO) 5.8 10^3/uL (1.5-6.6); NEUTROPHILS % (AUTO) 69.6 %; PLT - PLATELET COUNT 416 10^3/uL (130-450); RED BLOOD COUNT 4.42 10^6/uL (4.70-6.10); RED CELL DISTRIBUTION WIDTH 12.9 % (12.0-15.0); WHITE BLOOD COUNT 8.3 x10^3/uL (4.8-10.8)
[2023-12-26] MEDS: OLANZapine ODT 5 MG TABLET TL STA (09:05)
[2023-12-26 09:12] LABS: ALBUMIN 4.3 g/dL (3.2-5.5); ALBUMIN/GLOBULIN RATIO 1.5 (1.0-2.2); ALKALINE PHOSPHATASE 54 IU/L (42-121); ALT ALANINE AMINOTRANSFERASE 14 IU/L (10-60); AST ASPARTATE AMINOTRANSFERASE 20 IU/L (10-42); BILIRUBIN,TOTAL 0.5 mg/dL (0.2-1.0); BUN - BLOOD UREA NITROGEN 17 mg/dL (6-20); CALCIUM 10.3 mg/dL (8.5-10.3); CARBON DIOXIDE - CO2 27 mmol/L (21-32); CHLORIDE 103 mmol/L (101-111); CREATININE 0.9 mg/dL (0.6-1.3); ETOH - ETHANOL < 10.0 mg/dL; GFR - MDRD 87 (>89); GLUCOSE 124 mg/dL (74-104); POTASSIUM 4.2 mmol/L (3.5-4.5); SODIUM 137 mmol/L (135-145); TOTAL PROTEIN 7.1 g/dL (6.4-8.9)
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
[2023-12-26 11:58] LABS: AMPHETAMINE SCREEN,URINE POSITIVE (NEGATIVE); BARBITURATE SCREEN,UR NEGATIVE (NEGATIVE); BENZODIAZEPINES SCREEN, URINE NEGATIVE (NEGATIVE); BUPRENORPHINE SCREEN, URINE NEGATIVE (NEGATIVE); COCAINE SCREEN URINE NEGATIVE (NEGATIVE); METHADONE SCREEN, URINE NEGATIVE (NEGATIVE); METHAMPHETAMINES SCREEN, URINE POSITIVE (NEGATIVE); OPIATE SCREEN, URINE NEGATIVE (NEGATIVE); OXYCODONE SCREEN, URINE NEGATIVE (NEGATIVE); THC CANNABINOID SCREEN, URINE NEGATIVE (NEGATIVE); TRICYCLIC ANTIDEPRESSANT,URINE NEGATIVE (NEGATIVE)
[2023-12-26] MEDS: OLANZapine 10 MG VIAL IM STA (15:31)
[2023-12-26] MEDS: LORazepam 2 MG/ML VIAL IM STA (15:34)
[2023-12-26] MEDS: OLANZapine ODT 5 MG TABLET TL ONE ×2 (15:39→15:58)
[2023-12-26] MEDS: LORazepam 1 MG TABLET PO STA ×2 (15:39→15:58)
[2023-12-26 19:36] VITALS: BP 140/90; O2SAT 97
== END 2023-12-26 19:40 ==
LOC: EDUNIT# → ED 08:24
DX: F31.9 Bipolar disorder, unspecified (principal); F17.200 Nicotine dependence, unspecified, uncomplicated
CPT/HCPCS: 36415; 80053; 80306; 82077; 85025; 87635; 93005; 99284; 99285; A9270; J8499; 87633